=== PATIENT | male | born 1990 | race Two or more races ===

== ENCOUNTER 2020-09-08 21:34 | Emergency (ER) | payer SELFPAY ==
[2020-09-08 21:39] VITALS: BP 128/96; PULSE 73; RESP 18; TEMP 36.2; O2SAT 97; BMI 41.1
--- NOTE | 2020-09-08 22:52 | ED.EXTPRO ---
HPI - Extremity Problem General Chief complaint: Extremity Problem Stated complaint: finger infection Time Seen by Provider: 09/08/20 22:51 Source: patient Mode of arrival: ambulatory Limitations: no limitations History of Present Illness HPI Narrative: Patient with habit of nail biting comes here with slight swelling of the tip of left middle finger for last 2-3 days no fever no pus discharge history of same in the past Related Data Previous Rx's Medication Instructions Recorded cephalexin 500 mg PO QID 10 Days #40 cap 09/08/20 doxycycline hyclate 100 mg PO BID #20 cap 09/08/20 ibuprofen 600 mg PO Q6H PRN #20 tab 09/08/20 Allergies Allergy/AdvReac Type Severity Reaction Status Date / Time No Known Allergies Allergy Unverified 01/29/20 16:08 Review of Systems Review of Systems: Yes all other systems are reviewed and are negative PMFSH Past Medical History Medical History No active medical problems Surgical History No history of previous surgery Social History Social History Advance Directives: No Advance Directives Information Provided: Yes Physical Exam Vital Signs: Vital Signs: Last Vital Signs Temp 97.2 F 09/08/20 21:39 Pulse 73 09/08/20 21:39 Resp 18 09/08/20 21:39 BP 128/96 H 09/08/20 21:39 Pulse Ox 97 09/08/20 21:39 Body Mass Index 41.1 Const: General: comfortable and no acute distress Extrem: Hand/finger images: 1. Swelling of the nail bed early paronychia of left middle finger MDM - Extremity (Nontraumatic) MDM Narrative Medical decision making narrative: Patient early paronychia of left middle finger which treat medically with antibiotic doxycycline and Keflex. Discharge Plan Discharge Clinical Impression: Paronychia of finger of left hand Patient Disposition: Home, Self-Care Instructions: Paronychia (ED) Additional Instructions: Take antibiotics as prescribed Avoid nail biting Report to ER/PCP if worsening of swelling or redness Prescriptions: New doxycycline hyclate 100 mg capsule 100 mg PO BID Qty: 20 RF: 0 cephalexin 500 mg capsule 500 mg PO QID 10 Days Qty: 40 RF: 0 ibuprofen 600 mg tablet 600 mg PO Q6H PRN (Reason: pain) Qty: 20 RF: 0 Interventions: ED Discharge Assessment Last Done: 09/09/20 00:10 Discharge Date/Time: 09/09/20 00:00
[2020-09-09] MEDS: cephALEXin 500 MG CAPSULE PO (00:02)
== END 2020-09-09 | disposition home or self-care (01) ==
PROVIDERS: Emergency Provider Internal Medicine
DX: L03.012 Cellulitis of left finger (principal)
CPT/HCPCS: 99283

== ENCOUNTER 2020-09-15 12:59 | Outpatient (REF) | payer OTHER, SELFPAY | END 2020-09-15 13:00 | disposition home or self-care (01) | LOC: HO.LAB 12:59 | PROVIDERS: Visit Provider Internal Medicine | DX: Z20.822 Contact with and (suspected) exposure to COVID-19 (principal) | CPT/HCPCS: C9803; U0003; U0005 ==